=== PATIENT | male | born 1990 | race Caucasian/White ===

== ENCOUNTER 2016-12-17 18:00 | Emergency (ER) | payer SELFPAY ==
[~2016-12-17] VITALS: Ht 182.9 cm; Wt 77.7 kg
[2016-12-17 18:17] VITALS: BP 147/100
--- NOTE | 2016-12-17 18:27 | PHYS DOC ---
General Chief Complaint: SEIZURE Stated Complaint: SEIZURE Time Seen by MD: 18:15 Source: patient Exam Limitations: no limitations Problems: History of Present Illness Initial Comments Pt is 26/M to ED with coworker for possible seizure. Pt/coworker state that while pt was taping drywall sitting on the ground a coworker noticed pt was lying on floor. Initial attempts to wake him were unsuccessful and EMS called. Pt evaluated by EMS and pt refused treatment. At coworker's insistence pt brought for evaluation. Pt states he has been feeling well, not much sleep last night and pt didn't eat today but nothing out of ordinary. States he had no aura or other symptoms, remembers waking up "with all the ambulance people everywhere." Pt states he had no SEO or focal weakness, no postictal/confusion, no n/v, no incontinence. Had one prior episode November last year sought no treatment. I specifically questioned him about illicit/rx meds, pt denies. I advised pt we would check CT head and labs at which point pt stopped me. He stated he has no health insurance and cannot afford a big ED or hospital bill. He requested no further testing and to leave. He was AOx3 exhibits [employer] capacity. Benefits of staying described as early dx/tx of underlying condition. Risks of leaving include recurrance, increased morbidity, loss of quality of life and/or . Pt states he still wants to leave AMA. He was advised to rest, f/u with doctor tomorrow. Also advised not to drive or operate machinery due to potential to hurt or kill himself or others. Pt expressed understanding. No physical exam, no testing. Timing/Duration: 1/2 hour Severity: severe Modifying Factors: improves with other Associated Symptoms: denies symptoms Allergies: Coded Allergies: Penicillins (Verified Allergy, Unknown, 12/17/16) Past Medical History Medical History: no pertinent history Surgical History: no surgical history Social History Smoker: non-smoker Alcohol: occasionally Drugs: none Review of Systems Constitutional: denies chills, denies diaphoresis, denies fever, malaise EENTM: denies eye pain, denies blurred vision, denies ear pain, denies ear discharge, denies nose pain, denies throat pain Respiratory: denies cough, denies orthopnea, denies shortness of breath, denies wheezing Cardiovascular: see [facility]en[facility] chest pain, denies palpitations Gastrointestinal: denies abdominal pain, denies diarrhea, denies nausea, denies vomiting Genitourinary: denies dysuria, denies frequency, denies hematuria Musculoskeletal: denies back pain, denies joint swelling, denies other Psychiatric/Neurological: see [facility]Iden[facility] headache, denies numbness, denies paresthesia, denies weakness Hematologic/Lymphatic: denies blood clots, denies easy bleeding, denies easy bruising Orders, Labs, Meds EKG: NSR 97 bpm, incomplete RBBB (likely age related) Departure Time of Disposition: 18:24 Disposition: 01 HOME, SELF-CARE Diagnosis: AMS, Against Medical Advice Condition: LEFT WITHOUT BEING SEEN Patient Instructions: Discharge Against Medical Advice Additional Instructions: As discussed, you have chosen to sign out against medical advice. Risks and benefits of staying vs leaving have been discussed with you. You may return at any time for further evaluation and treatment. No driving or operating machinery until cleared by neurologist. Follow up with your doctor tomorrow. Return to ED as needed. ELAYNE PERALES DO Dec 17, 2016 18:27
--- NOTE | 2016-12-17 18:31 | EKG ---
[address] [address] Test Date: 2016-12-17 Test Time: 18:17:11 Pat Name: JOSE LAM Department: Room: Gender: M Personalized Living Manager: YUDI : 1990 Requested By: ELAYNE PERALES Order Number: [id number] Reading MD: Measurements Intervals [place] Rate: 97 P: 63 FL: 122 QRS: 66 QRSD: 106 T: 9 QT: 350 QTc: 449 Interpretive Statements SINUS RHYTHM INCOMPLETE RIGHT BUNDLE BRANCH BLOCK NO SPECIFIC ECG ABNORMALITIES RI6.01 Unconfirmed report No previous ECG available for comparison
== END 2016-12-17 18:28 | disposition home or self-care (01) ==
LOC: ER 18:00
DX: R41.82 Altered mental status, unspecified (principal); R53.81 Other malaise; Z88.0 Allergy status to penicillin
CPT/HCPCS: 93005; 99283-25